=== PATIENT | female | born 1990 | race Caucasian/White ===

== ENCOUNTER 2016-09-28 09:44 | Emergency (ER) | payer OTHER ==
[~2016-09-28] VITALS: Ht 162.6 cm; Wt 98.0 kg
[~2016-09-28 09:44] MED LIST: ADDERALL20 MG PO; ALEVE220 MG PO; AMPHETAMINE SAL20 MG PO; AMPHETAMINE SAL30 MG PO; ATARAX,VISTARIL50 MG PO; BENTYL10 MG PO; CIPRO500 MG PO; CITRATE OF MAG296 ML PO; DOXYCYCLINE HY100 MG PO; HYCODAN SYRUP480 ML PO; IBUPROFEN800 MG PO; KEFLEX500 MG PO; LEVAQUIN500 MG PO; MOBIC7.5 MG PO; MOTRIN600 MG PO; MOTRIN800 MG PO; NAPROSYN500 MG PO; NO HOME MEDS; NO MEDS; NOHOMEMEDS; OXYCODONE-ACET1 EACH PO; PERCOCET 5/31 TABLET PO; PROVERA,CYCRIN5 MG PO; TORADOL10 MG PO; TYLENOL WITH C1 EACH PO; ULTRAM50 MG PO; VICODIN 5-3001 EACH PO; ZOFRAN ODT4 MG PO
[2016-09-28 10:32] LABS: MCH 31.8 PG (29.0-34.0); MCHC 35.3 G/DL (30.0-36.0); MCV 90.2 FL (83-99); MEAN PLAT.VOLUME 9.2 uM^3 (9.5-12.4); PLATELET COUNT 226 K/uL (156-360); RBC DIS.WIDTH-CV 12.5 % (11.8-14.6); RBC DIS.WIDTH-SD 40.6 % (39-53); RED BLOOD COUNT 3.99 M/uL (3.80-5.20); WHITE BLOOD COUNT 5.5 K/uL (4.1-10.2)
[2016-09-28 10:39] LABS: CHLORIDE 109 mEq/L (99-109); POTASSIUM 3.6 mEq/L (3.7-5.4); SODIUM 143 mEq/L (136-147)
[2016-09-28 10:41] LABS: GLUCOSE 88 mg/dL (70-99)
[2016-09-28 10:42] LABS: ANION GAP 10 MEQ/L (2-14)
[2016-09-28 10:43] LABS: TOTAL BILIRUBIN 0.5 mg/dL (0.0-1.0)
[2016-09-28 10:44] LABS: ALKALINE PHOSPHATASE 40 IU/L (3-129)
[2016-09-28 10:45] LABS: GFR ESTIMATE (CALCULATED) > 59 mL/min/
[2016-09-28 10:46] LABS: UREA NITROGEN (BUN) 5 mg/dL (9-23)
[2016-09-28 10:58] LABS: QUANTITATIVE HCG < 4.0 MIU/ML
[2016-09-28 11:32] LABS: ADD MIUA? YES; BILIRUBIN NEGATIVE; BLOOD SMALL; COLOR YELLOW ((YELLOW)); GLUCOSE (STRIP) NEGATIVE; KETONES TRACE; LEUKOCYTES NEGATIVE; NITRITE POSITIVE; PROTEIN (STRIP) NEGATIVE; SPECIFIC GRAVITY 1.015 (1.000-1.030); UROBILINOGEN 0.2 MG/DL (0.2-1.0)
[2016-09-28 12:31] LABS: BACTERIA 1+; CASTS NONE SEEN /LPF; CRYSTALS NONE SEEN; EPITHELIAL CELLS 1+; MUCUS 2+; RED BLOOD CELLS 0-5 /HPF (0-5); UCUL ADDED? NO; WHITE BLOOD CELLS 0-5 /HPF (0-5)
[2016-09-28] MEDS ORDERED: MOTRIN600 MG PO (13:47)
[2016-09-28] MEDS ORDERED: NORCO 5/3251 TABLET PO (13:47)
[2016-09-28 14:05] VITALS: BP 111/57
[2016-09-30 12:46] LABS: CHLAMYDIA TRACHOMATIS POSITIVE; NEISSERIA GONORRHOEAE NEGATIVE
== END 2016-09-28 14:06 | disposition home or self-care (01) ==
LOC: EME 09:44
PROVIDERS: Physician Assistant
DX: R10.2 Pelvic and perineal pain (principal); F17.200 Nicotine dependence, unspecified, uncomplicated
CPT/HCPCS: 80053; 81003; 84702; 85027; 87086; 87210; 87491; 87591; 99281; 99284

== ENCOUNTER 2016-12-04 23:49 | Emergency (ER) | payer OTHER ==
[~2016-12-04] VITALS: Ht 162.6 cm; Wt 94.6 kg
[~2016-12-04 23:49] MED LIST changes: +NORCO 5/3251 TABLET PO
[2016-12-05 01:06] VITALS: BP 139/73
== END 2016-12-05 01:15 | disposition home or self-care (01) ==
LOC: EME 23:49
PROC: 0HQGXZZ Repair Left Hand Skin, External Approach (ICD-10-PCS; principal; 2016-12-05)
DX: S61.214A Laceration without foreign body of right ring finger without damage to nail, initial encounter (principal); W25.XXXA Contact with sharp glass, initial encounter; F17.200 Nicotine dependence, unspecified, uncomplicated
CPT/HCPCS: 73140; 99281; 99284

== ENCOUNTER 2017-12-19 04:07 | Emergency (ER) | payer OTHER ==
[~2017-12-19] VITALS: Ht 157.5 cm; Wt 84.1 kg
[2017-12-19 05:26] LABS: CHLORIDE 104 mEq/L (99-109); POTASSIUM 3.6 mEq/L (3.7-5.4); SODIUM 139 mEq/L (136-147)
[2017-12-19 05:28] LABS: GLUCOSE 92 mg/dL (70-99); TOTAL PROTEIN 7.8 g/dL (6.4-8.3)
[2017-12-19 05:28] LABS: APPEARANCE SL.HAZY ((CLEAR)); BILIRUBIN NEGATIVE; BLOOD NEGATIVE; COLOR YELLOW ((YELLOW)); GLUCOSE (STRIP) NEGATIVE; KETONES NEGATIVE; LEUKOCYTES MODERATE; NITRITE NEGATIVE; PROTEIN (STRIP) 30; SPECIFIC GRAVITY 1.025 (1.000-1.030)
[2017-12-19 05:30] LABS: TOTAL BILIRUBIN 0.4 mg/dL (0.0-1.0)
[2017-12-19 05:32] LABS: ALKALINE PHOSPHATASE 70 IU/L (3-129); CREATININE 0.8 mg/dL (0.6-1.3); GFR ESTIMATE (CALCULATED) > 59 mL/min/
[2017-12-19 05:33] LABS: UREA NITROGEN (BUN) 9 mg/dL (9-23)
[2017-12-19 05:33] LABS: BACTERIA NONE SEEN /HPF; EPITHELIAL CELLS RARE /HPF; MUCUS 3+ /LPF; UCUL ADDED? YES; WHITE BLOOD CELLS 40-50 /HPF (0-5)
[2017-12-19 05:34] LABS: AST (GOT) 11 IU/L (2-34); HEMOGLOBIN 12.2 G/DL (11.9-15.5); MCH 30.5 PG (29.0-34.0); MCHC 34.9 G/DL (30.0-36.0); MCV 87.5 FL (83-99); PLATELET COUNT 405 K/uL (156-360); RBC DIS.WIDTH-CV 11.8 % (11.8-14.6); WHITE BLOOD COUNT 16.6 K/uL (4.1-10.2)
[2017-12-19 05:35] LABS: ALT (GPT) 7 IU/L (3-49)
[2017-12-19 05:36] LABS: QUANTITATIVE HCG < 4.0 MIU/ML
[2017-12-19 05:52] LABS: SOURCE SWAB
[2017-12-19 07:38] VITALS: BP 106/57
== END 2017-12-19 07:40 | disposition home or self-care (01) ==
LOC: EME 04:07
PROVIDERS: Emergency Medicine
DX: N70.93 Salpingitis and oophoritis, unspecified (principal); D72.829 Elevated white blood cell count, unspecified; N83.209 Unspecified ovarian cyst, unspecified side; F17.200 Nicotine dependence, unspecified, uncomplicated
CPT/HCPCS: 74177; 76856; 80053; 81003; 84702; 85027; 87086; 87210; 87491; 87591; 99281; 99285; J1885; J2405; J3010; J7030

== ENCOUNTER 2017-12-19 19:33 | Inpatient (IN) | payer OTHER ==
[~2017-12-19] VITALS: Ht 162.6 cm; Wt 84.5 kg
[2017-12-19 21:58] LABS: BASOPHIL (%) 0.1 % (0-1); EOSINOPHIL (%) 0.3 % (0-5); HEMATOCRIT 30.5 % (36.0-46.0); HEMOGLOBIN 10.5 G/DL (11.9-15.5); IMMATURE GRANULOCYTE (%) 0.5 % (0.0-0.7); LYMPHOCYTE (%) 9.6 % (15-42); LYMPHOCYTE COUNT 1.4 K/uL (1.0-2.8); MCH 30.2 PG (29.0-34.0); MCHC 34.4 G/DL (30.0-36.0); MCV 87.6 FL (83-99); MONOCYTE (%) 6.5 % (3-12); NEUTROPHIL COUNT 12.1 K/uL (1.8-6.4); PLATELET COUNT 339 K/uL (156-360); RBC DIS.WIDTH-CV 11.9 % (11.8-14.6); RED BLOOD COUNT 3.48 M/uL (3.80-5.20); WHITE BLOOD COUNT 14.6 K/uL (4.1-10.2)
[2017-12-19 22:09] LABS: ALBUMIN 3.5 g/dL (3.2-4.8); CHLORIDE 106 mEq/L (99-109); SODIUM 138 mEq/L (136-147)
[2017-12-19 22:11] LABS: GLUCOSE 90 mg/dL (70-99); TOTAL PROTEIN 6.7 g/dL (6.4-8.3)
[2017-12-19 22:15] LABS: ALKALINE PHOSPHATASE 62 IU/L (3-129); CREATININE 0.7 mg/dL (0.6-1.3); GFR ESTIMATE (CALCULATED) > 59 mL/min/
[2017-12-19 22:16] LABS: UREA NITROGEN (BUN) 8 mg/dL (9-23)
[2017-12-19 22:17] LABS: AST (GOT) 8 IU/L (2-34)
[2017-12-19 22:18] LABS: ALT (GPT) 6 IU/L (3-49); LIPASE 11 U/L (1.0-51.0)
[2017-12-19 22:24] LABS: QUANTITATIVE HCG < 4.0 MIU/ML
[2017-12-19 22:25] LABS: TOTAL BILIRUBIN 0.3 mg/dL (0.0-1.0)
[2017-12-19 23:02] LABS: APPEARANCE CLOUDY ((CLEAR)); BILIRUBIN NEGATIVE; BLOOD NEGATIVE; COLOR YELLOW ((YELLOW)); GLUCOSE (STRIP) NEGATIVE; KETONES NEGATIVE; LEUKOCYTES LARGE; NITRITE NEGATIVE; PROTEIN (STRIP) 30
[2017-12-19 23:18] LABS: EPITHELIAL CELLS 2+ /HPF; RED BLOOD CELLS 0-5 /HPF (0-5); WHITE BLOOD CELLS 30-40 /HPF (0-5)
[2017-12-19 23:19] LABS: BACTERIA 2+ /HPF; MUCUS NONE SEEN /LPF
[2017-12-20 01:24] VITALS: BP 123/58
[2017-12-20 06:02] LABS: HEMATOCRIT 31.6 % (36.0-46.0); HEMOGLOBIN 10.7 G/DL (11.9-15.5); MCH 29.6 PG (29.0-34.0); MCHC 33.9 G/DL (30.0-36.0); MCV 87.3 FL (83-99); PLATELET COUNT 308 K/uL (156-360); RBC DIS.WIDTH-CV 11.9 % (11.8-14.6); RBC DIS.WIDTH-SD 38.4 % (39-53); RED BLOOD COUNT 3.62 M/uL (3.80-5.20); WHITE BLOOD COUNT 15.6 K/uL (4.1-10.2)
[2017-12-20 06:25] LABS: CHLORIDE 108 MEQ/L (99-109); CREATININE 0.6 MG/DL (0.6-1.3); GFR ESTIMATE (CALCULATED) > 59 mL/min/; GLUCOSE 101 mg/dL (70-99); POTASSIUM 3.9 MEQ/L (3.7-5.4); SODIUM 140 MEQ/L (136-147); UREA NITROGEN (BUN) 7 mg/dL (9-23)
[2017-12-20 07:15] VITALS: BP 118/55
[2017-12-20 17:09] VITALS: BP 143/60
[2017-12-21 01:04] VITALS: BP 106/55
[2017-12-21 06:45] VITALS: BP 116/65
[2017-12-21 07:44] LABS: BENZODIAZEPINES, URINE SCREEN POSITIVE (200 ng/mL)
[2017-12-21 12:25] LABS: C DIFF TOXIN NEGATIVE (NEGATIVE)
[2017-12-21 15:20] VITALS: BP 105/62
[2017-12-22] VITALS: BP 136/84
[2017-12-22 05:46] LABS: HEMATOCRIT 30.1 % (36.0-46.0); HEMOGLOBIN 10.2 G/DL (11.9-15.5); MCH 29.7 PG (29.0-34.0); MCHC 33.9 G/DL (30.0-36.0); MCV 87.8 FL (83-99); PLATELET COUNT 330 K/uL (156-360); RBC DIS.WIDTH-CV 11.9 % (11.8-14.6); RBC DIS.WIDTH-SD 38.3 % (39-53); RED BLOOD COUNT 3.43 M/uL (3.80-5.20); WHITE BLOOD COUNT 9.1 K/uL (4.1-10.2)
[2017-12-22 08:04] VITALS: BP 132/68
[2017-12-22 10:03] LABS: INTER. NORMALIZED RATIO 1.6
[2017-12-22 11:36] LABS: HEPATITIS C ANTIBODY Nonreactive
[2017-12-22 11:37] LABS: HIV-1/2 AB/AG COMBO Nonreactive
[2017-12-22 16:14] VITALS: BP 103/54
[2017-12-23 00:20] VITALS: BP 111/65
[2017-12-23 08:09] VITALS: BP 111/74
[2017-12-23 08:49] LABS: BASOPHIL (%) 0.2 % (0-1); EOSINOPHIL (%) 0.6 % (0-5); EOSINOPHIL COUNT 0.1 K/uL (0-0.3); HEMATOCRIT 31.1 % (36.0-46.0); HEMOGLOBIN 10.8 G/DL (11.9-15.5); IMMATURE GRANULOCYTE (%) 0.4 % (0.0-0.7); LYMPHOCYTE (%) 15.3 % (15-42); LYMPHOCYTE COUNT 1.4 K/uL (1.0-2.8); MCH 29.9 PG (29.0-34.0); MCHC 34.7 G/DL (30.0-36.0); MCV 86.1 FL (83-99); MONOCYTE (%) 6.8 % (3-12); MONOCYTE COUNT 0.6 K/uL (0-0.8); NEUTROPHIL (%) 76.7 % (45-76); NEUTROPHIL COUNT 6.9 K/uL (1.8-6.4); PLATELET COUNT 355 K/uL (156-360); RBC DIS.WIDTH-CV 12.1 % (11.8-14.6); RBC DIS.WIDTH-SD 38.5 % (39-53); RED BLOOD COUNT 3.61 M/uL (3.80-5.20)
[2017-12-23 08:58] LABS: INTER. NORMALIZED RATIO 1.5
[2017-12-23 15:01] VITALS: BP 124/78
[2017-12-23 16:18] VITALS: BP 101/51
[2017-12-24] VITALS: BP 110/84
[2017-12-24 06:06] LABS: BASOPHIL (%) 0.4 % (0-1); EOSINOPHIL (%) 2.2 % (0-5); EOSINOPHIL COUNT 0.2 K/uL (0-0.3); HEMATOCRIT 31.6 % (36.0-46.0); HEMOGLOBIN 10.7 G/DL (11.9-15.5); IMMATURE GRANULOCYTE (%) 0.4 % (0.0-0.7); LYMPHOCYTE (%) 21.1 % (15-42); LYMPHOCYTE COUNT 1.8 K/uL (1.0-2.8); MCH 29.4 PG (29.0-34.0); MCHC 33.9 G/DL (30.0-36.0); MCV 86.8 FL (83-99); MONOCYTE (%) 6.6 % (3-12); MONOCYTE COUNT 0.6 K/uL (0-0.8); NEUTROPHIL (%) 69.3 % (45-76); NEUTROPHIL COUNT 5.8 K/uL (1.8-6.4); PLATELET COUNT 355 K/uL (156-360); RBC DIS.WIDTH-CV 12.1 % (11.8-14.6); RBC DIS.WIDTH-SD 38.9 % (39-53); RED BLOOD COUNT 3.64 M/uL (3.80-5.20); WHITE BLOOD COUNT 8.3 K/uL (4.1-10.2)
[2017-12-24 06:43] LABS: CHLORIDE 110 MEQ/L (99-109); CREATININE 0.5 MG/DL (0.6-1.3); GFR ESTIMATE (CALCULATED) > 59 mL/min/; GLUCOSE 89 mg/dL (70-99); POTASSIUM 3.8 MEQ/L (3.7-5.4); SODIUM 142 MEQ/L (136-147); UREA NITROGEN (BUN) 8 mg/dL (9-23)
[2017-12-24 07:39] VITALS: BP 125/54
[2017-12-24 10:10] VITALS: BP 109/55
[2017-12-24] MEDS ORDERED: DOXYCYCLINE HY100 MG PO (11:31)
[2017-12-24] MEDS ORDERED: OMNICEF300 MG PO (11:31)
[2017-12-24] MEDS ORDERED: TORADOL10 MG PO (11:39)
== END 2017-12-24 14:45 | disposition left against medical advice (07) | DRG 758 ==
LOC: EME 19:33 → ENRESERV 22:29 → EDOF 23:02 → 5EAST 23:02 → ENRESERV 23:07 → 5EAST 12-20 00:50
PROVIDERS: Internal Medicine; Obstetrics & Gynecology; Physician Assistant; Radiology Diagnostic Radiology
DX: N70.93 Salpingitis and oophoritis, unspecified (principal); F11.20 Opioid dependence, uncomplicated; D64.9 Anemia, unspecified; A74.9 Chlamydial infection, unspecified; F12.10 Cannabis abuse, uncomplicated; F13.10 Sedative, hypnotic or anxiolytic abuse, uncomplicated; F14.10 Cocaine abuse, uncomplicated; F17.210 Nicotine dependence, cigarettes, uncomplicated; K59.00 Constipation, unspecified; D72.829 Elevated white blood cell count, unspecified; F41.9 Anxiety disorder, unspecified; F31.9 Bipolar disorder, unspecified; G47.00 Insomnia, unspecified
CPT/HCPCS: 49406; 74177; 76856; 80048; 80053; 80306 90; 81003; 83605; 83690; 84702; 85025; 85027; 85610; 85730; 86803; 87040; 87070; 87075; 87086; 87205; 87210; 87389; 87491; 87493; 87591; 99281; 99283; 99285; J1885; J2405; J2543; J3010; J7030; J7050; J7120; S0074